=== PATIENT | male | born 1955 | race Caucasian/White ===

== ENCOUNTER 2016-11-07 19:30 | Emergency (ER) | payer OTHER ==
[~2016-11-07] VITALS: Ht 193 cm; Wt 112.7 kg
[2016-11-07] MEDS ORDERED: NITROGLYCERIN 2% 1 GM OINT PKT TD STA (19:35)
[2016-11-07 19:41] VITALS: Ht 193 cm; Wt 112.7 kg
[2016-11-07 19:48] LABS: ADD SCAN DIFF NO
[2016-11-07 19:50] LABS: BASOPHIL # 0.1 10^3/ul (0.0-0.1); BASOPHILS % 0.7 % (0.0-2.0); EOSINOPHILS # 0.2 10^3/ul (0.0-0.5); EOSINOPHILS % 2.6 % (0.0-7.0); HEMATOCRIT 45.1 % (42.0-52.0); HEMOGLOBIN 14.8 g/dl (14.0-18.0); LYMPHOCYTES # 2.1 10^3/ul (0.8-2.9); LYMPHOCYTES % 24.5 % (15.0-51.0); MEAN CORPUSCULAR HEMOGLOBIN 31.8 pg (29.0-33.0); MEAN CORPUSCULAR HGB CONC 32.8 g/dl (32.0-37.0); MEAN PLATELET VOLUME 10.1 fl (7.4-10.4); MONOCYTE # 0.7 10^3/ul (0.3-0.9); MONOCYTES % 8.4 % (0.0-11.0); NEUTROPHIL # 5.6 10^3/ul (1.6-7.5); NEUTROPHILS % 63.6 % (39.0-77.0); PLATELET COUNT 247 10^3/UL (140-415); RED BLOOD COUNT 4.65 10^6/ul (4.70-6.10); RED CELL DISTRIBUTION WIDTH 13.4 % (11.5-14.5); WHITE BLOOD COUNT 8.7 10^3/ul (4.8-10.8)
[2016-11-07] MEDS ORDERED: NITROGLYCERIN (SL) 0.4 MG TAB SL PRN (20:00)
[2016-11-07 20:04] LABS: INR 0.99; PROTIME 13.1 Sec (12.2-14.2)
[2016-11-07 20:05] LABS: PARTIAL THROMBOPLASTIN TIME 24.6 Sec (25.0-35.0); POTASSIUM 4.2 mmol/L (3.5-5.1)
[2016-11-07 20:08] LABS: CALCIUM 10.7 mg/dl (8.4-10.2); CREATININE 1.16 mg/dl (0.61-1.24)
[2016-11-07] MEDS ORDERED: ATOR20TA38 PO (20:19)
[2016-11-07 20:20] LABS: TROPONIN-I 0.08 ng/ml (0.00-0.12)
[2016-11-07] MEDS ORDERED: LISI40TA9 PO (20:20)
[2016-11-07] MEDS ORDERED: AMLO-147 PO (20:21)
[2016-11-07] MEDS ORDERED: GLIP-95 PO (20:21)
[2016-11-07] MEDS ORDERED: METF1000 PO (20:21)
--- NOTE | 2016-11-07 20:23 | RADRPT ---
PROCEDURE: XR Chest AP portable CLINICAL INDICATION: Chest pain TECHNIQUE: An AP portable radiograph of the chest was submitted. COMPARISON: None. FINDINGS: Support Hardware: None Cardiovascular: The cardiovascular silhouette appears unremarkable. Lung Hernandez: The lung hernandez appear clear with no nodule, alveolar infiltrate, or interstitial promi nence evident. Pleural Spaces: No pneumothorax or pleural effusion is identified. Osseous Structures: Mild diffuse degenerative spine changes are noted. Soft Tissues: The soft tissues appear generous. IMPRESSION: Unremarkable portable chest. Physician Olivia Date Time Electronically viewed and signed by Pamella Quintanilla Physician on 11/07/2016 20:23 RH/
--- NOTE | 2016-11-07 22:41 | ERA ---
ER Documentation Chief Complaint Date/Time DATE: 11/07/16 TIME: 22:40 Chief Complaint BIBA RA 102, Intermittent chest pain X1 week,denies CP at this time HPI Patient is a 61-year-old male with hypertension and diabetes who presents with chest pain. The patient has left-sided chest pain which he describes as a pressure. He felt dizzy, clammy, and pale. Started over one week ago but is gotten worse as the week is gone on. He has not had his blood pressure medicines for this week either. He felt the pain was worse today. He took 2 aspirin prior to calling 911. He was brought in by ambulance. He does not currently have a primary doctor. ROS All systems reviewed and are negative except as per history of present illness. Medications Home Meds Reported Medications Glipizide* (Glipizide*) 10 Mg Tablet, 5 MG PO AC BREAKFAST DINNER, TAB 11/07/16 Metformin Hcl* (Metformin Hcl*) 1,000 Mg Tablet, 1000 MG PO WITH BREAKFAST DINNE , #60 TAB 11/07/16 Amlodipine Besylate* (Amlodipine Besylate*) 10 Mg Tablet, 10 MG PO DAILY, #30 TAB 11/07/16 Lisinopril* (Lisinopril*) 40 Mg Tablet, 40 MG PO BID, #30 TAB 11/07/16 Atorvastatin Calcium* (Atorvastatin Calcium*) 20 Mg Tablet, 20 MG PO QHS, #30 TAB 11/07/16 Allergies Allergies: Coded Allergies: No Known Allergy (Unverified , 11/07/16) PMhx/Soc History of Surgery: No Anesthesia Reaction: No Hx Neurological Disorder: No Hx Respiratory Disorders: No Hx Cardiac Disorders: Yes (HTN, HIGH CHOLESTEROL) Hx Psychiatric Problems: No Hx Miscellaneous Medical Probl: Yes (DM) Hx Alcohol Use: No Hx Substance Use: No Hx Tobacco Use: No Smoking Status: Never smoker FmHx Family History: coronary disease Physical Exam Vitals Vital Signs Date Time Temp Pulse Resp B/P Pulse Ox O2 Delivery O2 Flow Rate FiO2 11/07/16 21:45 98 16 153/80 97 Room Air 11/07/16 19:41 98.3 88 18 188/93 96 Physical Exam Const: No acute distress Head: Atraumatic Eyes: Normal Conjunctiva ENT: Normal External Ears, Nose and Mouth. Neck: Full range of motion..~ No meningismus. Resp: Clear to auscultation bilaterally Cardio: Regular rate and rhythm, no murmurs Abd: Soft, non tender, non distended. Normal bowel sounds Skin: No petechiae or rashes Back: No midline or flank tenderness Ext: No cyanosis, or edema Neur: Awake and alert Psych: Normal Mood and Affect Result Diagram: 11/07/16193411/07/161934 Results 24 hrs Laboratory Tests Test 11/07/16 19:35 White Blood Count 8.710^3/ul Red Blood Count 4.6510^6/ul Hemoglobin 14.8g/dl Hematocrit 45.1% Mean Corpuscular Volume 97.0fl Mean Corpuscular Hemoglobin 31.8pg Mean Corpuscular Hemoglobin Concent 32.8g/dl Red Cell Distribution Width 13.4% Platelet Count 71903^3/UL Mean Platelet Volume 10.1fl Neutrophils % 63.6% Lymphocytes % 24.5% Monocytes % 8.4% Eosinophils % 2.6% Basophils % 0.7% Nucleated Red Blood Cells % 0.0/100WBC Neutrophils # 5.610^3/ul Lymphocytes # 2.110^3/ul Monocytes # 0.710^3/ul Eosinophils # 0.210^3/ul Basophils # 0.110^3/ul Nucleated Red Blood Cells # 0.010^3/ul Prothrombin Time 13.1Sec Prothrombin Time Ratio 1.0 INR International Normalized Ratio 0.99 Activated Partial Thromboplast Time 24.6Sec Sodium Level 134mmol/L Potassium Level 4.2mmol/L Chloride Level 93mmol/L Carbon Dioxide Level 26mmol/L Anion Gap 19 Blood Urea Nitrogen 18mg/dl Creatinine 1.16mg/dl Glucose Level 208mg/dl Calcium Level 10.7mg/dl Troponin I 0.080ng/ml Current Medications Medications (Trade) Dose Ordered Sig/Cely Route PRN Reason Start Time Stop Time Status Last Admin Dose Admin Nitroglycerin (Nitroglycerin 2% Oint) 1 inch ONCE STAT TD 11/07/16 19:35 11/07/16 19:36 DC 11/07/16 19:57 Nitroglycerin (Nitroglycerin (Sl Tab) 0.4 Mg) 1 tab Q5M UP TO 3 DOSES PRN SL CHEST PAIN 11/07/16 20:00 Procedures/MDM EKG #1 read by me: Rate/Rhythm: Regular rate and rhythm at a normal rate Intervals: Normal Impression: No evidence of ischemia or arrhythmia EKG #2 read by me: Rate/Rhythm: Regular rate and rhythm at a normal rate Intervals: Normal Impression: No evidence of ischemia or arrhythmia Chest x-ray shows no pneumonia or pneumothorax per radiology. Patient is a 61-year-old male with multiple cardiac risk factors who presents with chest pain. I am concerned for possible acute coronary syndrome. The patient is capitated to another hospital at [facility] and I spoke with Dr. Mckeon at this hospital who is accepted the patient in transfer. The patient already took aspirin. He was given nitroglycerin. At this point I doubt pneumonia, pneumothorax, pulmonary embolism, or aortic dissection. Departure Diagnosis: Primary Impression: Chest pain Qualified Code: R07.9 - Chest pain, unspecified type Condition: HUSSAIN Garzon MD Nov 07, 2016 22:41
[2016-11-07 23:00] VITALS: TEMP 98.6
[2016-11-08 01:02] VITALS: BP 135/101; PULSE 91; RESP 19
[2016-11-08 01:10] LABS: CK-MB 7.28 ng/ml (0.0-2.4); TROPONIN-I 0.811 ng/ml (0.00-0.12)
== END 2016-11-08 01:13 | disposition short-term general hospital (02) ==
LOC: E/R 19:30
DX: R07.89 Other chest pain (principal); I10 Essential (primary) hypertension; E11.9 Type 2 diabetes mellitus without complications; Z79.84 Long term (current) use of oral hypoglycemic drugs
CPT/HCPCS: 36415; 71010; 80048; 82550; 82553; 82962; 84484; 85025; 85610; 85730; 93005; Z7502; Z7610